=== PATIENT | female | born 1935 | race Caucasian/White ===

== ENCOUNTER 2021-12-21 10:44 | Outpatient (REF) | payer MEDICARE, SELFPAY ==
[2021-12-21 11:38] LABS: Hemoglobin A1C* 5.64 % (0-5.6)
== END 2021-12-21 10:45 | disposition home or self-care (01) ==
LOC: NPINS 10:44
PROVIDERS: PCP Family Medicine; Visit Provider Nurse Practitioner Gerontology
DX: E03.9 Hypothyroidism, unspecified (principal)
CPT/HCPCS: 83036; 84443

== ENCOUNTER 2022-05-03 11:44 | Outpatient (REF) | payer MEDICARE, SELFPAY ==
[2022-05-03 14:54] LABS: C.Difficile Negative (Negative); CDIFFEPI 027 Presumptive Negative (Negative)
== END 2022-05-03 11:45 | disposition home or self-care (01) ==
LOC: NPINS 11:44
PROVIDERS: PCP Family Medicine; Visit Provider Nurse Practitioner Gerontology
DX: R19.5 Other fecal abnormalities (principal)
CPT/HCPCS: 87493